=== PATIENT | male | born 1945 | race Caucasian/White ===

== ENCOUNTER → 2016-09-26 | Outpatient (CLI) | payer OTHER ==
[2016-09-27 14:55] LABS: BLOOD UREA NITROGEN 22 mg/dL (7-22); BUN/CREATININE RATIO 24.44 (6-20); EST GLOMERULAR FILTRATION > 60 (>60 ml/min/1.73m(2)); SERUM ALBUMIN 3.6 g/dL (3.5-4.8)
[2016-09-27 14:56] LABS: HEMOGLOBIN A1C 9.34 % (4.2-6.0)
== END ==
LOC: LAB 16:04
PROVIDERS: ATTEND Physician Assistant Medical
DX: E11.9 Type 2 diabetes mellitus without complications (principal)
CPT/HCPCS: 80053; 83036

== ENCOUNTER 2018-09-13 12:44 | Observation (INO) ==
[2018-09-13] MEDS ORDERED: ASPIRIN 81 MG (BABY) CHEWABLE TABLET PO ONE (12:59)
[2018-09-13 13:15] LABS: BASOPHILS # (AUTO) 0.02 10*3/UL; BASOPHILS % (AUTO) 0.4 % (0-1); EOSINOPHILS # (AUTO) 0.21 10*3/UL; LYMPHOCYTES # (AUTO) 1.88 10*3/uL; MEAN CORPUSCULAR HEMOGLOBIN 33.3 PG (27-31); MEAN CORPUSCULAR HGB CONC 34.1 g/dL (33-37); MEAN CORPUSCULAR VOLUME 97.8 FL (80-90); MEAN PLATELET VOLUME 9.6 FL (7.4-12.2); MONOCYTES # (AUTO) 0.58 10*3/UL (0.3-0.8); MONOCYTES % (AUTO) 10.9 % (5-15); NEUTROPHILS # (AUTO) 2.59 10*3/UL; NEUTROPHILS % (AUTO) 48.7 % (50-80)
[2018-09-13 13:16] LABS: PLATELET MORPHOLOGY COMMENT NORMAL MORPHOLOGY (NORM); RBC MORPHOLOGY COMMENT NORMAL MORPHOLOGY (NORM); WBC MORPHOLOGY COMMENT NORMAL MORPHOLOGY (NORM)
--- NOTE | 2018-09-13 13:20 | EKG ---
[address] [address] Measurements Intervals [place] Rate: 69 P: 58 ND: 173 QRS: 97 QRSD: 108 T: -15 QT: 379 QTc: 398 Interpretive Statements SINUS RHYTHM WITH WANDERING BASELINE BORDERLINE RIGHT AXIS DEVIATION MODERATE ST DEPRESSION No previous ECG available for comparison Electronically Signed On 09-13-18 18:52:46 MDT by Alex Denson [id number]
[2018-09-13 13:33] LABS: BLOOD UREA NITROGEN 17 mg/dL (7-22); BUN/CREATININE RATIO 15.45 (6-20); SERUM ALBUMIN 3.7 g/dL (3.5-4.8)
--- NOTE | 2018-09-13 14:42 | DI ---
AP CHEST X-RAY, 09/13/2018 1:00 PM : Clinical History: Chest pain. Previous Exam: None at this facility. Soft Tissues: No acute soft tissue abnormality. Bones: Normal. Heart: Normal heart. Lungs: No infiltrates. Effusion(s): None. Mediastinum: Normal mediastinum. Nodules: No pulmonary nodules. Reading: Normal chest x-ray.
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
--- NOTE | 2018-09-13 14:58 | DI ---
CT ANGIOGRAM OF THE CHEST, 09/13/2018 1:47 PM : Clinical History: Chest pain. Elevated D-dimer test. Previous Exam: None at this facility. Technique: Scans from base of neck to lung bases with IV contrast. Bolus tracking protocol was used f or timing the injection. Non-MIPS and MIPS sagittal/coronal images generated. IV Contrast: 65 mL of Isovue 300. Base of Neck: Normal. Nodes: Normal axillary, supraclavicular, mediastinal, and hilar lymph nodes. There are hilar and medi astinal lymph nodes there are normal-sized and calcified. Heart: Normal. Calcifications are present in the LAD, circumflex, and right coronary arteries. Aorta: Normal thoracic aorta. No aneurysm or dissection. Pulmonary Arteries: Normal. No pulmonary emboli or infarcts; there is pulmonary hypertension. Lungs: No infiltrates. Bullous emphysema. Effusion(s): None. Nodules: Calcified granulomata are present in the right upper lobe and right middle lobe. Bony Structures: Normal visualized portions of ribs, sternum, scapulae, clavicles, and shoulders. Nor mal visualized portions of thoracic spine. Limited Upper Abdomen: Normal adrenal glands and spleen. Normal limited views of liver and pancreas. READIN. No evidence of pulmonary embolism. There is pulmonary arterial hypertension. 2. No acute infiltrate or effusion. Centrilobular emphysema with bullae. 3. 3 vessel coronary artery disease.
[2018-09-13] MEDS ORDERED: DEXTROSE 31 GM GEL PO PRN (16:20)
[2018-09-13] MEDS: Insulin Lispro Flexpen 300 UNIT/3 ML INSULN.PEN SUBCUT SCH ×2 (16:20→21:13)
[2018-09-13] MEDS ORDERED: Glucagon Inj Vial 1 MG/ML VIAL IM PRN (16:20)
[2018-09-13] MEDS ORDERED: METHOTREXATE SODIUM 20 MG PO SCH (16:20)
[2018-09-13] MEDS ORDERED: LIDOCAINE W/ SODIUM BICARB 0.5 ML SYR SUBD PRN (16:20)
[2018-09-13] MEDS ORDERED: ONDANSETRON 4 MG/2 ML VIAL IVP PRN (16:20)
[2018-09-13] MEDS ORDERED: DEXTROSE 50%-WATER SYRINGE 50 ML SYRINGE IVP PRN (16:20)
[2018-09-13] MEDS ORDERED: HYDROcodone-APAP 7.5 MG-325 MG TABLET PO PRN (16:20)
[2018-09-13] MEDS ORDERED: CALCIUM CARBONATE 500 MG (TUMS) CHEWABLE TABLET PO PRN (16:20)
[2018-09-13] MEDS ORDERED: ACETAMINOPHEN 325 MG TABLET PO PRN (16:20)
[2018-09-13] MEDS ORDERED: Insulin Sliding Scale Protocol SUBCUT PRN (16:20)
[2018-09-13 17:13] LABS: URINE SAMPLE TYPE VOIDED SPECIMEN; URINE SPECIFIC GRAVITY - MAN 1.028
[2018-09-13 17:19] LABS: AMPHETAMINE SCREEN NEGATIVE (NEG); CANNABINOID SCREEN,URINE NEGATIVE (NEG); COCAINE SCREEN NEGATIVE (NEG); METHADONE URINE SCREEN NEGATIVE (NEG); METHAMPHETAMINES SCREEN,URINE NEGATIVE (NEG); OPIATE SCREEN,URINE POSITIVE (NEG)
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
[2018-09-13] MEDS: Topiramate Tab 50 MG TAB PO SCH (20:06)
[2018-09-13] MEDS: ATORVASTATIN 40 MG TABLET PO SCH (20:06)
[2018-09-13] MEDS ORDERED: Topiramate Tab 50 MG TAB PO SCH (21:00)
[2018-09-13] MEDS ORDERED: Topiramate Tab 50 MG TAB PO ONE (21:00)
[2018-09-14 05:36] LABS: CHOL/HDL RATIO 6.35 RATIO (0-4.0)
[2018-09-14] MEDS: Esomeprazole DR 20mg Capsule PO SCH (07:20)
[2018-09-14] MEDS: Insulin Lispro Flexpen 300 UNIT/3 ML INSULN.PEN SUBCUT SCH ×4 (07:26→20:25)
[2018-09-14] MEDS: ASPIRIN EC 81 MG TABLET PO SCH (09:36)
[2018-09-14] MEDS: Topiramate Tab 50 MG TAB PO SCH ×3 (09:36→20:19)
[2018-09-14] MEDS: FOLIC ACID 1 MG TABLET PO SCH (09:36)
[2018-09-14] MEDS: ENOXAPARIN SODIUM 40 MG/0.4 ML SYRINGE SUBCUT SCH (09:37)
--- NOTE | 2018-09-14 14:32 | PDOC(PROG) ---
Date of Service: 09/14/18 Time of Service: 09:00 Interval History: No chest pain, no shortness of breath, no nausea or vomiting. Feeling much better. Objective : Data - Labs CBC and BMP: 09/13/18 13:15 09/13/18 13:15 Additional Lab Results: 09/13/18 09/13/18 09/13/18 13:15 13:15 18:40 Troponin I < 0.012 < 0.012 Triglycerides Cholesterol LDL Cholesterol, Calc VLDL Cholesterol HDL Cholesterol Cholesterol/HDL Ratio TSH 0.568 Free T4 09/14/18 09/14/18 09/14/18 00:00 04:35 04:35 Troponin I < 0.012 Triglycerides 153 Cholesterol 178 LDL Cholesterol, Calc 119.400 VLDL Cholesterol 30 HDL Cholesterol 28 L Cholesterol/HDL Ratio 6.35 H TSH Free T4 0.53 L Objective : Exam - General General Appearance: No Acute Distress, Cooperative Additional General Exam Details: Selected Entries 09/14/18 08:23 Temperature 98 F Pulse Rate [Pulse Oximeter] 79 Respiratory Rate 18 Blood Pressure [Left Arm] 92/62 Blood Pressure Mean [Left Arm] 72 Pulse Ox 91 Oxygen Delivery Method Room Air - Eye Eye Exam: No Scleral Icterus - ENT ENT Exam: Mucous Membranes Moist - Neck Neck Exam: JVP is not Raised - Respiratory Respiratory Exam: Clear to Auscultation - Bilaterally, Breathing Non Labored - Cardiovascular Cardiovascular Exam: RRR, No Murmur, No Clicks, No Gallops, No Rubs, No JVD - GI/Abdominal GI/Abdominal Exam: Normal Bowel Sounds, Non Tender, Non Distended, Soft - Extremities Extremities Exam: No Clubbing Present, No Edema Present, No Cyanosis Present - Neurological Neurological Exam: Alert, Oriented x 3, No Facial Droop, Speech Intact / Clear, Moves All Extremities Equally Assessment and Plan - Patient Problems (1) Chest pain Current Visit: Yes Status: Acute Code(s): R07.9 - Chest pain, unspecified (2) DMII (diabetes mellitus, type 2) Current Visit: Yes Status: Acute Code(s): E11.9 - Type 2 diabetes mellitus without complications Qualifiers: Diabetes mellitus biofuels research scientist insulin use: without mcfp use Diabetes mellitus complication status: without complication Qualified Code(s): E11.9 - Type 2 diabetes mellitus without complications (3) Hypercholesterolemia Current Visit: Yes Status: Acute Code(s): E78.00 - Pure hypercholesterolemia, unspecified (4) Tobacco abuse Current Visit: Yes Status: Acute Code(s): Z72.0 - Tobacco use (5) Autoimmune disorder Current Visit: Yes Status: Chronic Code(s): D89.89 - Other specified disorders involving the immune mechanism, not elsewhere classified (6) Migraine Current Visit: Yes Status: Chronic Code(s): G43.909 - Migraine, unspecified, not intractable, without status migrainosus Qualifiers: Migraine type: unspecified Status migrainosus presence: without status migrainosus Intractability: not intractable Qualified Code(s): G43.909 - Migraine, unspecified, not intractable, without status migrainosus - Assessment / Plan Additional Assessment/Plan Details: Stress portion of Lexiscan stress test today Rest portion of Lexiscan stress test tomorrow. Patient has chest pain, I will still hold off on giving nitroglycerin although I held Cialis. However the half-life on Cialis is quite long. Continue telemetry monitoring. Insulin coverage for diabetes. Continue to hold metformin as contrast study was done yesterday.
--- NOTE | 2018-09-14 14:35 | STRESSTEST ---
[facility] [place] This is a 72 YO with chest pain, ruled out for [place], has risk factors of tobacco abuse, family history, diabetes mellitus, and high cholesterol. Stressed with Aniya scan protocol. Resting EKG is NSR with non specific T wave inversion in lead III. With vasodilator, the patient had occasional PVC, had cramping sensation in stomach. Otherwise no significant findings on EKG tracings. Plan: stress images today, rest images tomorrow, radiology to review, risk stratification based on results to follow. [email or web address]
[2018-09-14] MEDS: ATORVASTATIN 40 MG TABLET PO SCH (20:19)
[2018-09-15 07:12] VITALS: RESP 18
[2018-09-15] MEDS: Insulin Lispro Flexpen 300 UNIT/3 ML INSULN.PEN SUBCUT SCH ×2 (07:39→11:54)
[2018-09-15] MEDS: ENOXAPARIN SODIUM 40 MG/0.4 ML SYRINGE SUBCUT SCH (08:40)
[2018-09-15] MEDS: Topiramate Tab 50 MG TAB PO SCH (08:41)
[2018-09-15] MEDS: Esomeprazole DR 20mg Capsule PO SCH (08:41)
[2018-09-15] MEDS: ASPIRIN EC 81 MG TABLET PO SCH (08:41)
[2018-09-15] MEDS: FOLIC ACID 1 MG TABLET PO SCH (08:41)
[2018-09-15 11:51] VITALS: BP 122/75; TEMP 98.2; O2SAT 93
--- NOTE | 2018-09-15 13:30 | DI ---
2 DAY LEXISCAN STRESS & REST MYOCARDIAL PERFUSION SCANS, 09/14/2018 9:00 AM : Clinical History: Chest pain. Previous Exam: None at this facility. Monitoring Physician: Dr. Kimani Flores. Dose: Stress dose: 39 mCi on 09/14/2018. Rest dose: 39 mCi on 09/15/2018. Quantitative Analysis: [employer] program without and with low dose limited CT chest scan attenuati on correction. Exam Quality: Excellent. Rejected Beats: Stress = 1%; Rest = 4%. HR: Stress = 73-79 b/m; Rest = 70-7 5 b/m. Left Ventricular Chamber Sizes: Normal at stress and rest. Transient Ischemic Dilatation Ratio: 1.17. Normal Antione TID <= 1.22; normal Lexiscan TID <= 1.33. LVEF: Stress: 69%. Rest: 75%. Myocardial Perfusion: Normal at stress and rest. There is anatomic apical thinning. Myocardial Wall Motion: Normal at stress and rest. Myocardial Thickening: Normal at stress and rest. Coronary Artery Calcifications: Coronary artery calcifications are present in the proximal and middle thirds of the LAD and the proximal portions of the right coronary artery and the left circumflex art ramin. Lungs: Calcified lymph nodes are present in both timmy, the azygos lymph node, in the subcarinal lymph nodes. No pulmonary nodules noted. Readin. Normal stress and rest left ventricular chamber size. Transient ischemic dilatation ratio is norm al at 1.17. 2. Normal stress and rest LVEF values of 69% and 75%, respectively. 3. Normal stress and rest myocardial perfusion, wall motion, and thickening. There is anatomic apica l thinning of the apex. 4. Coronary artery disease manifested by calcifications in the LAD, right coronary artery, and left circumflex artery. 5. Calcified hilar and mediastinal lymph nodes.
--- NOTE | 2018-09-15 14:51 | DCSUMMARY ---
Hospitalization Summary Admit Date: 09/13/2018 Discharge Date: 09/15/18 Primary Diagnosis:: chest pain, suspect anginal chest pain Hospital Course: Very pleasant 72-year-old male that presented with chest pain that he eventually described as exertional, worsening when he was strapping pipes down on his truck, or when he was doing activities, and then resolved with rest. He ruled out for myocardial infarction. A Lexiscan stress test was done, and the results show calcifications and 3 vessels but normal ejection fractions and normal stress and rest findings. I am somewhat concerned that this could be a false negative stress test and that he may have diffuse underlying coronary artery disease so as the stress and rest portions looked the same. I think he should still visit with her cord splicer to discuss possible heart catheterization. He is already on a statin. He is being treated for his diabetes. He is on a baby aspirin. We will add metoprolol. I discussed the side effects of metoprolol and asked the patient to watch his blood pressure. If it gets too low, then stop medication. I was able to arrange a cardiology appointment tomorrow. Currently, no completes of chest pain. No nausea or vomiting. No shortness of breath. Plan for discharge was discussed with and patient and they agreed with the plan. I stressed the importance of not taking any nitroglycerin or nitrates as they can reduce blood pressure significantly in the setting of daily Cialis Assessment and Plan: 1. As per discharge assessments noted 2. Disposition: Patient is discharged home. 3. Condition on discharge, stable and improved. I will not clear for work until he is cleared by cardiology 4. Diet: regular diet 5. Activities: resume normal activities, but do not return to work until cleared by cardiology. 6. Follow-Up: 1. Primary provider in one to 2 weeks 2. Cardiology tomorrow. Appointment arranged at 9:30 AM with [place] [facility]ology. 7. Medications at the Time of Discharge: Home Medications Medication Instructions Recorded Confirmed Type Acetaminophen [Acetaminophen ER] 1 tab PO Q8H PRN tab 09/26/16 09/13/18 History Hydrocodone/Acetaminophen 1 - 2 tab PO Q4H PRN tab 09/26/16 09/13/18 History [Hydrocodone-Acetamin 7.5-325] Ibuprofen 1 tab PO TID PRN tab 09/26/16 09/13/18 History inFLIXimab Inj [Remicade Inj] 5 mgkg IV PRN vial 09/26/16 09/13/18 History blood sugar diagnostic strips 1 strip MISCELLANEOUS BID #180 08/13/18 09/13/18 Rx strip esomeprazole magnesium 40 mg 40 mg PO DAILY #90 cap 08/13/18 09/13/18 Rx capsule,delayed release folic acid 1 mg tablet 1 mg PO DAILY #90 tab 08/13/18 09/13/18 Rx glipizide ER 10 mg tablet, 10 mg PO DAILY #30 tab 08/13/18 09/13/18 Rx extended release 24 hr metformin 500 mg tablet 500 mg PO QDAY #30 tab 08/13/18 09/13/18 Rx methotrexate sodium 2.5 mg tablet 20 mg PO WEEKLY #24 tab 08/13/18 09/13/18 Rx tadalafil 20 mg tablet 20 mg PO DAILY #90 tab 08/13/18 09/13/18 Rx topiramate 25 mg sprinkle capsule 25 mg PO BID #180 cap 08/13/18 09/13/18 Rx testosterone cypionate 200 mg/mL 200 mg IM QWEEK #12 ea 08/20/18 09/13/18 Rx intramuscular kit Aspirin [Low Dose Aspirin EC] 81 mg PO 09/13/18 History Atorvastatin Calcium [Lipitor] 40 mg PO DAILY 09/13/18 09/13/18 History Metoprolol Tartrate 25 mg PO BID #60 tablet 09/15/18 Rx This is an observation discharge Exam - Vitals Vital Signs: Vital Signs Temperature 98.2 F Temperature Source Temporal Artery Scan Pulse Rate [Apical] 92 Pulse Rate [Pulse Oximeter] 88 Pulse Rate 77 Respiratory Rate 18 Blood Pressure [Right Arm] 122/75 Blood Pressure [Left Arm] 105/61 Pulse Ox 93 Oxygen Flow Rate 2 Oxygen Delivery Method Room Air Height 5 ft 11 in Weight 203 lb 8 oz - General General Appearance: No Acute Distress, Cooperative - Eye Eye Exam: POSITIVE: No Scleral Icterus - ENT ENT Exam: POSITIVE: Mucous Membranes Moist - Neck Neck Exam: JVP is not Raised - Respiratory Respiratory Exam: POSITIVE: Clear to Auscultation - Bilaterally, Breathing Non Labored - Cardiovascular Cardiovascular Exam: POSITIVE: RRR, No Murmur, No Clicks, No Gallops, No Rubs, No JVD - GI/Abdominal GI/Abdominal Exam: POSITIVE: Normal Bowel Sounds, Non Tender, Non Distended, Soft - Extremities Extremities Exam: POSITIVE: No Clubbing Present, No Edema Present, No Cyanosis Present - Neurological Neurological Exam: POSITIVE: Alert, Oriented x 3, No Facial Droop, Speech Intact / Clear, Moves All Extremities Equally Data Peritnent Studies: 09/13/18 09/13/18 09/13/18 13:15 13:15 13:15 WBC 5.31 Hgb 15.0 Hct 44.0 Plt Count 287 D-Dimer 1.39 H Sodium Potassium Chloride Carbon Dioxide Anion Gap BUN Creatinine BUN/Creatinine Ratio Glucose Calculated Osmolality Calcium Magnesium 1.8 Total Bilirubin AST ALT Alkaline Phosphatase CK-MB (CK-2) Troponin I C-Reactive Protein 2.2 H NT-Pro-B Natriuret Pep 150 H Total Protein Albumin Globulin Albumin/Globulin Ratio Triglycerides Cholesterol LDL Cholesterol, Calc VLDL Cholesterol HDL Cholesterol Amylase 55 Lipase 35 TSH Free T4 09/13/18 09/13/18 09/13/18 13:15 13:15 18:40 WBC Hgb Hct Plt Count D-Dimer Sodium 136 Potassium 4.0 Chloride 109 Carbon Dioxide 23 Anion Gap 4 L BUN 17 Creatinine 1.1 BUN/Creatinine Ratio 15.45 Glucose 169 H Calculated Osmolality 287.0 Calcium 9.1 Magnesium Total Bilirubin 0.7 AST 34 ALT 8 L Alkaline Phosphatase 77 CK-MB (CK-2) 1.11 Troponin I < 0.012 < 0.012 C-Reactive Protein NT-Pro-B Natriuret Pep Total Protein 7.0 Albumin 3.7 Globulin 3.3 Albumin/Globulin Ratio 1.10 L Triglycerides Cholesterol LDL Cholesterol, Calc VLDL Cholesterol HDL Cholesterol Amylase Lipase TSH Free T4 09/14/18 09/14/18 09/14/18 00:00 04:35 04:35 WBC Hgb Hct Plt Count D-Dimer Sodium Potassium Chloride Carbon Dioxide Anion Gap BUN Creatinine BUN/Creatinine Ratio Glucose Calculated Osmolality Calcium Magnesium Total Bilirubin AST ALT Alkaline Phosphatase CK-MB (CK-2) Troponin I < 0.012 C-Reactive Protein NT-Pro-B Natriuret Pep Total Protein Albumin Globulin Albumin/Globulin Ratio Triglycerides 153 Cholesterol 178 LDL Cholesterol, Calc 119.400 VLDL Cholesterol 30 HDL Cholesterol 28 L Amylase Lipase TSH 0.667 Free T4 0.53 L Procedures: [address] [facility] [place] [address] PH: DD: [phone] FAX: [phone] ~DIAGNOSTIC IMAGING REPORT~ Patient: ROBERT DELGADO : 1945 Sex: M Age: 72 Exam Name: LA Myocardial Multi-Spect Exam Date: 09/14/18 Report # : [id number] CPT Code: 19298 EMR/MR #: [id number] Ordering: PITER BURNETT Admiting: PITER BURNETT DO Primary: Jeanine Maldonado PA-C Attending: PITER BURNETT DO Signed 2 DAY LEXISCAN STRESS & REST MYOCARDIAL PERFUSION SCANS, 09/14/2018 9:00 AM : Clinical History: Chest pain. Previous Exam: None at this facility. Monitoring Physician: Dr. Piter Burnett. Dose: Stress dose: 39 mCi on 09/14/2018. Rest dose: 39 mCi on 09/15/2018. Quantitative Analysis: [id number] program without and with low dose limited CT chest scan attenuation correction. Exam Quality: Excellent. Rejected Beats: Stress = 1%; Rest = 4%. HR: Stress = 73-79 b/m; Rest = 70-75 b/m. Left Ventricular Chamber Sizes: Normal at stress and rest. Transient Ischemic Dilatation Ratio: 1.17. Normal Antione TID <= 1.22; normal Lexiscan TID <= 1.33. LVEF: Stress: 69%. Rest: 75%. Myocardial Perfusion: Normal at stress and rest. There is anatomic apical thinning. Myocardial Wall Motion: Normal at stress and rest. Myocardial Thickening: Normal at stress and rest. Coronary Artery Calcifications: Coronary artery calcifications are present in the proximal and middle thirds of the LAD and the proximal portions of the right coronary artery and the left circumflex artery. Lungs: Calcified lymph nodes are present in both timmy, the azygos lymph node, in the subcarinal lymph nodes. No pulmonary nodules noted. Readin. Normal stress and rest left ventricular chamber size. Transient ischemic dilatation ratio is normal at 1.17. 2. Normal stress and rest LVEF values of 69% and 75%, respectively. 3. Normal stress and rest myocardial perfusion, wall motion, and thickening. There is anatomic apical thinning of the apex. 4. Coronary artery disease manifested by calcifications in the LAD, right coronary artery, and left circumflex artery. 5. Calcified hilar and mediastinal lymph nodes. Dictated By: 09/15/18 1318 CHACHO PARIS MD. Signed By: 09/15/18 1330 CHACHO PARIS MD. [address] [facility] [place] [address] PH: DD: [phone] FAX: [phone] ~DIAGNOSTIC IMAGING REPORT~ ---- Patient: ROBERT DELGADO : 1945 Sex: M Age: 72 Exam Name: CT CTA Chest Non-Coronary [facility] Exam Date: 09/13/18 Report # : [id number] CPT Code: 58521 EMR/MR #: [id number] Ordering: LANA RANGEL Admiting: Primary: Jeanine Maldonado PA-C Attending: Signed CT ANGIOGRAM OF THE CHEST, 09/13/2018 1:47 PM : Clinical History: Chest pain. Elevated D-dimer test. Previous Exam: None at this facility. Technique: Scans from base of neck to lung bases with IV contrast. Bolus tracking protocol was used for timing the injection. Non-MIPS and MIPS sagittal/coronal images generated. IV Contrast: 65 mL of Isovue 300. Base of Neck: Normal. Nodes: Normal axillary, supraclavicular, mediastinal, and hilar lymph nodes. There are hilar and mediastinal lymph nodes there are normal-sized and calcified. Heart: Normal. Calcifications are present in the LAD, circumflex, and right coronary arteries. Aorta: Normal thoracic aorta. No aneurysm or dissection. Pulmonary Arteries: Normal. No pulmonary emboli or infarcts; there is pulmonary hypertension. Lungs: No infiltrates. Bullous emphysema. Effusion(s): None. Nodules: Calcified granulomata are present in the right upper lobe and right middle lobe. Bony Structures: Normal visualized portions of ribs, sternum, scapulae, clavicles, and shoulders. Normal visualized portions of thoracic spine. Limited Upper Abdomen: Normal adrenal glands and spleen. Normal limited views of liver and pancreas. READIN. No evidence of pulmonary embolism. There is pulmonary arterial hypertension. 2. No acute infiltrate or effusion. Centrilobular emphysema with bullae. 3. 3 vessel coronary artery disease. Dictated By: 09/13/18 1451 CHACHO PARIS MD. Signed By: 09/13/18 1458 CHACHO PARIS MD. Patient Problems - Patient Problem List (1) Chest pain Current Visit: Yes Status: Acute Code(s): R07.9 - Chest pain, unspecified Category: Medical (2) Calcification of coronary artery Current Visit: Yes Status: Acute Code(s): I25.10 - Atherosclerotic heart disease of tejon coronary artery without angina pectoris; I25.84 - Coronary atherosclerosis due to calcified coronary lesion Category: Medical (3) DMII (diabetes mellitus, type 2) Current Visit: Yes Status: Acute Code(s): E11.9 - Type 2 diabetes mellitus without complications Qualifiers: Diabetes mellitus lobsterman insulin use: without lobsterman use Diabetes mellitus complication status: without complication Qualified Code(s): E11.9 - Type 2 diabetes mellitus without complications Category: Medical (4) Hypercholesterolemia Current Visit: Yes Status: Acute Code(s): E78.00 - Pure hypercholesterolemia, unspecified Category: Medical (5) Tobacco abuse Current Visit: Yes Status: Acute Code(s): Z72.0 - Tobacco use Category: Medical (6) Autoimmune disorder Current Visit: Yes Status: Chronic Code(s): D89.89 - Other specified disorders involving the immune mechanism, not elsewhere classified Category: Medical (7) Migraine Current Visit: Yes Status: Chronic Code(s): G43.909 - Migraine, unspecified, not intractable, without status migrainosus Qualifiers: Migraine type: unspecified Status migrainosus presence: without status migrainosus Intractability: not intractable Qualified Code(s): G43.909 - Migraine, unspecified, not intractable, without status migrainosus Category: Medical
== END 2018-09-15 15:23 | disposition home or self-care (01) ==
LOC: ER 12:44 → MED/SURG 12:44
PROVIDERS: ADMIT Family Medicine; ATTEND Family Medicine